=== PATIENT | male | born 1975 | race Caucasian/White ===

== ENCOUNTER 2023-07-31 13:46 | Inpatient (IN) | payer OTHER ==
[2023-07-31 15:53] VITALS: BMI 29.2
[2023-07-31] MEDS ORDERED: guaiFENesin 600 MG TABLET.ER (FP) PO PRN (20:17)
[2023-07-31] MEDS ORDERED: P-EPHED 60MG/TRIPROLIDI 2.5MG TABLET PO PRN (20:17)
[2023-07-31] MEDS ORDERED: ACETAMINOPHEN 325 MG TABLET (FP) PO PRN (20:17)
[2023-07-31] MEDS ORDERED: LOPERAMIDE HCL 2 MG CAPSULE PO PRN (20:17)
[2023-07-31] MEDS ORDERED: BENZOCAINE/MENTHOL (CHLORASEPTIC ) LOZENGE MM PRN (20:17)
[2023-07-31] MEDS ORDERED: IBUPROFEN 400 MG TABLET (FP) PO PRN (20:17)
[2023-07-31] MEDS ORDERED: COLLOIDAL OATMEAL 1 BAR EACH TP PRN (20:17)
[2023-07-31] MEDS ORDERED: POLYETHYLENE GLYCOL (HEALTHYLAX) 3350 17 GM PACKET PO PRN (20:17)
[2023-07-31] MEDS ORDERED: NICOTINE POLACRILEX 2 MG GUM BUC PRN (20:17)
[2023-07-31] MEDS ORDERED: MAG HYDROX/AL HYDROX/SIMETH 30 ML UNIT-DOSE CUP PO PRN (20:17)
[2023-07-31] MEDS ORDERED: MAGNESIUM HYDROX 2400MG/30ML ORAL SUSPENSION 30 ML CUP PO PRN (20:17)
[2023-07-31] MEDS ORDERED: IBUPROFEN 600 MG TABLET (FP) PO PRN (20:17)
[2023-07-31] MEDS ORDERED: BENZONATATE 200 MG CAPSULE PO PRN (20:17)
[2023-07-31] MEDS: MELATONIN 5 MG TABLETS PO SCH (21:20)
[2023-07-31] MEDS: THIAMINE HCL 100 MG TABLET (FP) PO SCH (21:20)
[2023-08-01] MEDS ORDERED: TUBERCULIN PPD 5 TU/0.1ML SYRINGE (IN PATIENT USE ONLY) ID ONE (00:18)
[2023-08-01 08:26] LABS: CHLORIDE 104 mmol/L (98-107); POTASSIUM 4.2 mmol/L (3.5-5.1); SODIUM 136 mmol/L (136-145)
[2023-08-01 08:28] LABS: CALCIUM 8.9 mg/dL (8.5-10.1)
[2023-08-01 08:29] LABS: ALBUMIN 3.9 g/dl (3.4-5.0); ANION GAP 4 mmol/L (4-13); BLOOD UREA NITROGEN 8.7 mg/dL (7-18); CO2 27 mmol/L (21-32); GLUCOSE,RANDOM 139 mg/dL (74-106)
[2023-08-01 08:32] LABS: CREATININE 0.7 mg/dL (0.55-1.3); SGOT/AST 11 U/L (15-37); SGPT/ALT 19 U/L (13-61)
[2023-08-01 08:33] LABS: BILIRUBIN,TOTAL 0.2 mg/dL (0.2-1)
[2023-08-01 08:34] LABS: TOT PROT 6.8 g/dl (6.4-8.2)
[2023-08-01 08:35] LABS: ALK PHOS 48 U/L (45-117)
[2023-08-01 09:13] LABS: MCH 30.4 pg (25.7-33.7); MCHC 31.8 g/dl (32.0-35.9); MEAN CELL VOLUME 95.9 fl (80-96); MEAN PLT VOLUME 7.4 fl (7.5-11.1); PLATELET COUNT 345 10^3/uL (134-434); RBC 4.59 M/mm3 (4.00-5.60); RDW 13.1 % (11.9-15.9); WHITE BLOOD COUNT 7.8 K/mm3 (4.0-10.0)
[2023-08-01] MEDS: PRENATAL VITAMINS W/ FOLIC ACID TABLET (FP) PO SCH (09:51)
[2023-08-01 13:26] LABS: URINE APPEARANCE CLEAR; URINE BILIRUBIN NEGATIVE (NEGATIVE); URINE COLOR YELLOW; URINE GLUCOSE (UA) NEGATIVE (NEGATIVE); URINE KETONE NEGATIVE (NEGATIVE); URINE LEUK ESTERASE NEGATIVE (NEGATIVE); URINE NITRITE NEGATIVE (NEGATIVE); URINE PROTEIN NEGATIVE (NEGATIVE); URINE UROBILINOGEN 0.2 mg/dL (0.2-1.0)
[2023-08-01 13:27] LABS: SYPHILIS W/ RPR CONF NON-REACTIVE (NONREACTIVE)
[2023-08-01] MEDS: THIAMINE HCL 100 MG TABLET (FP) PO SCH (21:24)
[2023-08-01] MEDS: MELATONIN 5 MG TABLETS PO SCH (21:24)
[2023-08-02 07:04] VITALS: BP 125/70; PULSE 77; RESP 16; TEMP 98
[2023-08-02] MEDS: PRENATAL VITAMINS W/ FOLIC ACID TABLET (FP) PO SCH (09:47)
== END 2023-08-02 10:28 | disposition home or self-care (01) | DRG 772 ==
LOC: YASAS 13:46 → Y5N 20:46
PROVIDERS: ADMIT Allergy & Immunology; ATTEND Psychiatry & Neurology Pain Medicine
PROC: HZ42ZZZ Group Counseling for Substance Abuse Treatment, Cognitive-Behavioral (ICD-10-PCS; principal; 2023-07-31)
DX: F14.20 Cocaine dependence, uncomplicated (principal); F17.210 Nicotine dependence, cigarettes, uncomplicated; F20.0 Paranoid schizophrenia
CPT/HCPCS: 36415; 73030-TC-RT-FY; 80053; 80307; 81003; 85027; 86780; 86803; 87635